=== PATIENT | male | born 1970 | race Caucasian/White ===

== ENCOUNTER → 2017-08-28 | Outpatient (CLI) | payer BC ==
--- NOTE | 2017-08-28 08:46 | US ---
EXAMINATION TYPE: US abdomen complete DATE OF EXAM: 08/28/2017 COMPARISON: NONE CLINICAL HISTORY: 46-year-old male R74.8 abnormal levels of serum enzymes. Elevated liver enzymes TECHNIQUE: Multiple sonographic images of the abdomen are obtained. FINDINGS: EXAM MEASUREMENTS: Liver Length: 18.6 cm Gallbladder Wall: 0.2 cm CBD: 0.5 cm Spleen: 14.1 cm Right Kidney: 9.7 x 5.3 x 4.9 cm Left Kidney: 10.2 x 6.0 x 5.4 cm Clothes Presser notes: Difficult and limited study due to patient body habitus Pancreas: visualized portions wnl, head and tail limited by overlying midline bowel gas Liver: enlarged, attenuating, increased echogenicity. No focal lesion seen. Gallbladder: wnl Evidence for sonographic Yap's sign: no CBD: visualized portions wnl, limited by overlying bowel gas Spleen: Mildly enlarged, limited by overlying bowel gas Right Kidney: No hydronephrosis Left Kidney: No hydronephrosis Upper IVC: Limited visualization due to bowel gas. Abd Aorta: visualized portions wnl, distal portion obscured by overlying midline bowel gas . IMPRESSION: 1. Technically difficult exam due to patient body habitus and bowel gas. 2. Mild hepatomegaly (18.6 cm) with moderate to marked hepatic steatosis. Correlate with LFTs, lipid profile, and patient risk factors. 3. Mild splenomegaly (14.1 cm).
== END | disposition home or self-care (01) ==
LOC: RADUSWWP 07:15
PROVIDERS: ATTEND Family Medicine
DX: K76.0 Fatty (change of) liver, not elsewhere classified (principal); R16.2 Hepatomegaly with splenomegaly, not elsewhere classified
CPT/HCPCS: 76700

== ENCOUNTER → 2018-12-14 | Outpatient (CLI) | payer OTHER ==
--- NOTE | 2018-12-14 22:10 | MR ---
EXAMINATION TYPE: MR knee LT wo con DATE OF EXAM: 12/14/2018 COMPARISON: None HISTORY: Chondral injury left knee TECHNIQUE: Multiplanar, multisequence images of the knee is performed without IV contrast. FINDINGS: MEDIAL MENISCUS: There is increased signal within the substance of the posterior horn medial meniscus compatible with internal derangement or degenerative change. The anterior horn appears intact. Radia l tear is not excluded near the midline. LATERAL MENISCUS: Anterior and posterior horns are intact without tear. CRUCIATE LIGAMENTS: The anterior and posterior cruciate ligaments are intact and unremarkable. COLLATERAL LIGAMENTS: The medial collateral ligament and lateral collateral ligament complex are inta ct and unremarkable. EXTENSOR MECHANISM: Visualized quadriceps and patellar tendons are intact. EFFUSION: Minimal joint effusion is present. POPLITEAL CYST: No popliteal/solorio cyst. TRICOMPARTMENT SPACES: There is some mild narrowing of the medial compartment joint space. Milder mely rowing of the lateral compartment joint space is present. CARTILAGE: There is thinning of the medial and lateral femoral condylar cartilage. Tibial plateau car tilage appears preserved. Patellofemoral joint space is preserved. No suspicious undercutting fractur e through the cartilage is evident. BONE MARROW SIGNAL: No focal abnormal marrow signal is appreciated. OTHER: No additional significant abnormality is appreciated. IMPRESSION: 1. Suspected radial tear mid medial meniscus. 2. Mild internal derangement or degenerative change of the posterior horn medial meniscus. 3. Intimal joint effusion. 4. Mild thinning of the articular cartilage of the medial lateral femoral condyles.
== END | disposition home or self-care (01) ==
LOC: RADMRIMAIN 19:01
PROVIDERS: ATTEND Family Medicine
DX: S83.242A Other tear of medial meniscus, current injury, left knee, initial encounter (principal)

== ENCOUNTER → 2021-03-28 | Outpatient (CLI) | payer BC ==
--- NOTE | 2021-03-28 13:34 | CONS ---
CONSULTATION DATE OF SERVICE: 03/28/2021 This 50-year-old gentleman has been evaluated in Sleep Center for obstructive sleep apnea-hypopnea syndrome. HISTORY OF PRESENT ILLNESS/SLEEP-WAKE EVALUATION: Patient was diagnosed with obstructive sleep apnea in [place] about 10 years ago. Since that time, he has been on treatment with CPAP and is using equipment every night. His sleep schedule is from 11 p.m. until 7 a.m. on weekdays and from midnight until 7 a.m. on weekends. No problems with falling asleep, although he has a TV set in the bedroom. He usually sleeps on the back position. No history of hypnagogic hallucinations, sleep paralysis or cataplexy. Results of his previous sleep study are unavailable. [place] Sleepiness Scale is 2. I checked his CPAP unit. Range of the pressure is 14 to 20, average usage 7.6 hours per night, 22/30 nights for more than 4 hours, which indicates normal compliance. PAST MEDICAL HISTORY: Positive for hypothyroidism, post-traumatic stress disorder. PAST SURGICAL HISTORY: Cholecystectomy, abdominal liposuction. MEDICATIONS: 1. Levothyroxine 25 mcg once a day. 2. Medication for losing weight. SOCIAL HISTORY: Positive for smoking in the past; quit smoking about 5 years ago. Alcohol consumption: None. FAMILY HISTORY: Hypertension, diabetes. REVIEW OF SYSTEMS: Sometimes awakenings from sleep. No fevers. No double vision. No recent chest pain. No shortness of breath. No abdominal pain. No bleeding episodes. No blood in the urine. No seizure episodes. PHYSICAL EXAMINATION: GENERAL: Pleasant patient in no distress. VITAL SIGNS: BP 121/81, HR 79, RR 16, height 5 feet 8 inches, weight 223.4, body mass index 33.9, neck 18-1/2 inches in circumference, temperature 97.8, oxygen saturation at room air 97%. HEENT: PERRLA, EOMI, evaluation of oropharynx showed tongue protrudes midline. Extremely low position of soft palate; Mallampati IV. NECK: Supple, no JVD. Thyroid is not palpable. Neck measures 18-1/2 inches in circumference. LUNGS: Clear to percussion and to auscultation. Good air exchange. No wheezing or rhonchi. HEART: S1, S2 regular. No murmurs, gallops, or rubs. ABDOMEN: Soft and nontender. Bowel sounds are present. No organomegaly appreciated. EXTREMITIES: No clubbing or cyanosis. TUBULAR RIVETER: Awake, alert, and oriented X3. Cranial nerves 2 to 7 intact. There is no fasciculation or atrophy. noted. No focal deficits observed. IMPRESSION: 1. Obstructive sleep apnea-hypopnea syndrome for 10 years. Patient continues to use his CPAP equipment. Results of previous sleep studies are unavailable; done in another state. Extremely low position of soft palate, Mallampati IV, wide neck, 18- 1/2 inches in circumference; obstructive sleep apnea-hypopnea syndrome. 2. Obesity. 3. Hypothyroidism. 4. History of post-traumatic stress disorder. 5. Status post cholecystectomy. 6. Status post abdominal liposuction. PLAN: 1. Home sleep apnea test for evaluation of patient's breathing during sleep to confirm obstructive sleep apnea-hypopnea syndrome. 2. We will get the patient a new CPAP unit and all necessary CPAP supplies. His CPAP unit is old and does not have information about apnea-hypopnea index. 3. Watching and losing weight. 4. Sleep hygiene with regular time in bed for 7-1/2 to 8 hours. 5. No driving if feeling sleepiness. Thank you very much for referring this patient for consultation. Sincerely, Leopoldo Call MD, PhD, FAASM Diplomat of [place] [employer] Sleep Medicine Board of [place] [employer] Game Master of [facility] [place] MMODL / MARCO: [id number] /
== END ==
LOC: SLEEP 10:09
PROVIDERS: ATTEND Internal Medicine
DX: G47.33 Obstructive sleep apnea (adult) (pediatric) (principal); E66.9 Obesity, unspecified; E03.9 Hypothyroidism, unspecified; Z90.49 Acquired absence of other specified parts of digestive tract
CPT/HCPCS: 99211

== ENCOUNTER → 2021-11-14 | Outpatient (CLI) | payer BC ==
--- NOTE | 2021-11-14 11:32 | P.PN ---
Subjective DATE: 11/14/2021 FOLLOW UP VISIT. Patient with obstructive sleep apnea hypopnea syndrome return to sleep center for follow-up visit. Recently patient had sleep study which documented obstructive sleep apnea hypopnea syndrome. Patient was initiated on PAP therapy and today is first visit after treatment was started. Patient was able to use PAP equipment every night for the whole night. The patient does not have significant problems with the mask, PAP pressure and humidification. [place] sleepiness scale is 0. I checked information from PAP unit. PAP unit pressure 5-15, average 12.3 cm H2O. Usage is 90 % for more then 4 hours, average 8 hours per night. Leak is 5.1 l/m, which is in good range. Apnea Hypopnea Index is 0.1, which is perfect. MEDICATIONS:1. Levothyroxine 25 g once a day 2. Medication for losing weight During physical exam: GENERAL: A pleasant patient without any distress. VITAL SIGNS: BP 130/76, HR 65, RR 16, weight 225.2, temperature 97, oxygen saturation at room air 97%. HEENT: PERRLA, EOMI.low position of soft palate, Mallapati 4 . NECK: Supple. No JVD. LUNGS: Clear to percussion and to auscultation. Good air exchange. No wheezing or rhonchi. HEART: S1, S2 regular. ABDOMEN: Soft and nontender.[] EXTREMITIES: No clubbing or cyanosis. KNOCK UP ASSEMBLER: Awake, alert, and oriented x3. No focal deficit. Impressions: 1. Obstructive sleep apnea-hypopnea syndrome. Patient demonstrated great compliance with treatment, benefiting from treatment. 2. Mild obesity. 3. Hypothyroidism. 4. History of post traumatic stress disorder. 5. Status post cholecystectomy. 6. Status post abdominal liposuction. Plan: 1. Continue using PAP equipment every night for the whole night. 2. To change air filter at least 1-2 times per month. 3. PAP unit should stay lower then position of the head. 4. Advised patient to remove all remaining water from humidifier canister daily and make it dry after each usage. Refill canister with fresh distilled water before each usage. 5. Sleep hygiene with regular time in bed for at least 8 hours. 6. Precautions related to driving. No driving if feel any sleepiness. 7. I will maintain prescription for PAP supplies including mask, tube, filters. 8. Follow up visit in 6 months or earlier if patient has any problems. 9. Watching weight. Thank you very much for allowing me to participate in the management of your patient. Leopoldo Call MD, PhD, FAASM. Diplomat of [place] [employer], Sleep Medicine Board by [place] [employer] Waiter/Waitress Counter of [facility] [place]
== END | disposition home or self-care (01) ==
LOC: SLEEP 11:08
PROVIDERS: ATTEND Internal Medicine
DX: Z53.9 Procedure and treatment not carried out, unspecified reason (principal)
CPT/HCPCS: 99212

== ENCOUNTER → 2022-10-03 | Outpatient (CLI) | payer BC ==
--- NOTE | 2022-10-03 17:09 | P.PN ---
Subjective DATE: 10/03/2022 FOLLOW UP VISIT. Patient with obstructive sleep apnea hypopnea syndrome return to sleep center for follow-up visit. Information from previous visit have been reviewed. Patient is using PAP equipment every night for the whole night, getting PAP supplies in time. The patient does not have significant problems with the mask, PAP unit and humidification. [place] sleepiness scale is 0. I checked information from PAP unit. PAP unit pressure 5-15, average 9.0 cm H2O. Usage is 100 % for more then 4 hours, average 7.5 hours per night. Leak is 4.2 l/m, which is in acceptable range. Apnea Hypopnea Index is 0.2, which is normal. MEDICATIONS:1. Synthroid 75 g once a day 2.. Lexapro 20 mg once a day 3. Seroquel 100 mg once a day During physical exam: GENERAL: A pleasant patient without any distress. VITAL SIGNS: BP 126/82, HR 60, RR 16, weight to 240.4, temperature 98.6, oxygen saturation at room air 96 % . HEENT: PERRLA, EOMI.low position of soft palate, Mallapati 4 . NECK: Supple. No JVD. LUNGS: Clear to percussion and to auscultation. Good air exchange. No wheezing or rhonchi. HEART: S1, S2 regular. ABDOMEN: Soft and nontender. Slightly obese EXTREMITIES: No clubbing or cyanosis. MACHINIST BENCH: Awake, alert, and oriented x3. No focal deficit. Impressions: 1. Obstructive sleep apnea-hypopnea syndrome. Patient demonstrated great compliance with treatment, benefiting from treatment. 2. Obesity, patient increased his weight on 15 pounds comparing to the previous visit. 3. Hypothyroidism. 4. History of posttraumatic stress disorder. 5. Status post cholecystectomy. 6. Status post abdominal liposuction. Plan: 1. Continue using PAP equipment every night for the whole night. 2. To change air filter at least 1-2 times per month. 3. PAP unit should stay lower then position of the head. 4. Advised patient to remove all remaining water from humidifier canister daily and make it dry after each usage. Refill canister with fresh distilled water before each usage. 5. Sleep hygiene with regular time in bed for at least 8 hours. 6. Precautions related to driving. No driving if feel any sleepiness. 7. I will maintain prescription for PAP supplies including mask, tube, filters. 8. Watching and losing weight. 9. Follow up visit in 6 months or earlier if patient has any problems. Thank you very much for allowing me to participate in the management of your patient. Leopoldo Call MD, PhD, FAASM. Diplomat of [place] [employer], Sleep Medicine Board by [place] [employer] Retail Coverage Merchandiser of [facility] [place]
== END ==
LOC: 3 N SLEEP 16:27
PROVIDERS: ATTEND Internal Medicine
DX: G47.33 Obstructive sleep apnea (adult) (pediatric) (principal); E03.9 Hypothyroidism, unspecified; E66.9 Obesity, unspecified; F43.10 Post-traumatic stress disorder, unspecified; Z79.890 Hormone replacement therapy; Z99.89 Dependence on other enabling machines and devices; Z98.890 Other specified postprocedural states
CPT/HCPCS: 99212

== ENCOUNTER 2023-04-29 21:29 | Emergency (ER) | payer BC ==
[2023-04-29] MEDS: NITROGLYCERIN SL TABS 0.4 MG TAB SUBLINGUAL STA (21:47)
--- NOTE | 2023-04-29 21:49 | ED ---
General Adult HPI - General Stated complaint: Chest pain Time Seen by Provider: 04/29/23 21:36 Source: RN notes reviewed, old records reviewed - History of Present Illness Initial comments: Patient is a 52-year-old male who presents emergency department complaining of chest pain. Patient also has a bilateral frontal headache that is been present for multiple months. This is unchanged from his baseline. Did have prior workup without any obvious etiology. This seemed evening at approximately 8 PM he developed chest pain suddenly. Was on the right side of his chest. No radiation. Describes it as a discomfort rating it as a 1-2 out of 10. Did feel sweaty when it started but that has since resolved. Denies any nausea or vomiting. Denies any other pain or shortness of breath. No history of recent long distance travel. Does have a history of PTSD but denies any worsening anxiety or panic issues. States he did see PCP last week and his blood pressure was slightly elevated. Pressure currently is within acceptable limits. Did receive nitro on the way to the hospital. States that did not improve his symptoms. Also received aspirin 324 mg from EMS. 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 Presents for further evaluation at this time. - Related Data Allergies Allergy/AdvReac Type Severity Reaction Status Date / Time No Known Allergies Allergy Verified 04/29/23 21:51 Review of Systems ROS Statement: Those systems with pertinent positive or pertinent negative responses have been documented in the HPI. Review of Systems: CONST: Denies fever EYES: Denies blurry vision ENT: Denies nasal congestion C/V: Endorses chest pain RESP: Denies shortness of breath GI: Denies abdominal pain : Denies dysuria SKIN: Denies rash. MSK: Denies joint pain. NEURO: Denies headache ROS Other: All systems not noted in ROS Statement are negative. General Exam - General Exam Comments Initial Comments: General: Appears in no acute distress. HEAD: Normal with no signs of head trauma. EYES: PERRLA, EOMI, conjunctiva normal, no discharge. Pupils are 3 mm and equal bilaterally. ENT: Hearing grossly intact, normal oropharynx. RESPIRATORY: Clear breath sounds bilaterally. No wheezes, rales, or rhonchi. C/V: Regular rate and rhythm. S1 and S2 auscultated, no edema, peripheral pulses 2+ and intact throughout ABD: Abd is soft, nontender, nondistended EXT: Normal range of motion, no obvious deformity. Chest pain is not reprod ucible on palpation. SKIN: No rashes or lesions observed on exposed skin. NEURO: Alert and oriented x 4. GCS of 15. No focal deficits. Course Vital Signs 04/29/23 04/29/23 04/30/23 21:43 21:51 01:22 Temperature 98.0 F Pulse Rate 71 68 56 L Respiratory 18 18 16 Rate Blood Pressure 126/85 107/77 112/74 O2 Sat by Pulse 97 97 Oximetry Medical Decision Making - Medical Decision Making Was pt. sent in by a medical professional or institution (, PA, RV REPAIR TECHNICIAN, urgent care, hospital, or prison...) When possible be specific @ -No Did you speak to anyone other than the patient for history (EMS, parent, family, police, friend...)? What history was obtained from this source @ -No Did you review nursing and triage notes (agree or disagree)? Why? @ -I reviewed and agree with nursing and triage notes Were old charts reviewed (outside hosp., previous admission, EMS record, old EKG, old radiological studies, urgent care reports/EKG's, prison records)? Report findings @ -Old charts reviewed Differential Diagnosis (chest pain, altered mental status, abdominal pain women, abdominal pain men, vaginal bleeding, weakness, fever, dyspnea, syncope, headache, dizziness, GI bleed, back pain, seizure, CVA, palpatations, mental health, musculoskeletal)? @ -Differential Chest Pain: Stable Angina, Unstable Angina, STEMI, NSTEMI Aortic Dissection, Pneumothorax, Musculoskeletal, Esophageal Spasm GERD, Cholecystitis, Pancreatitis, Zoster, this is not meant to be an all-inclusive list. EKG interpreted by me (3pts min.). @ -As above X-rays interpreted by me (1pt min.). @ -X-ray reveals no obvious acute cardiopulmonary process. CT interpreted by me (1pt min.). @ -None done U/S interpreted by me (1pt. min.). @ -None done What testing was considered but not performed or refused? (CT, X-rays, U/S, labs)? Why? @ -None What meds were considered but not given or refused? Why? @ -None Did you discuss the management of the patient with other professionals (professionals i.e. , PA, RV REPAIR TECHNICIAN, lab, RT, psych nurse, social media coordinator, flower grader, teacher, biosecurity officer, caser)? Give summary @ -No Was smoking cessation discussed for >3mins.? @ -No Was critical care preformed (if so, how long)? @ -No Were there social determinants of health that impacted care today? How? (Homelessness, low income, unemployed, alcoholism, drug addiction, transportation, low edu. Level, literacy, decrease access to med. care, long term, rehab)? @ -No Was there de-escalation of care discussed even if they declined (Discuss DNR or withdrawal of care, Hospice)? DNR status @ -No What co-morbidities impacted this encounter? (DM, HTN, Smoking, COPD, CAD, Cancer, CVA, ARF, Chemo, Hep., AIDS, mental health diagnosis, sleep apnea, morbid obesity)? @ -None Was patient admitted / discharged? Hospital course, mention meds given and route, prescriptions, significant lab abnormalities, going to OR and other pertinent info. @ -Patient presents for chest pain. Started approximately an hour and a half prior to arrival. No significant cardiac history in himself or family members. Vital signs are currently within acceptable limits. EMS provided the patient with 324 mg of aspirin as well as oral nitroglycerin. Chest pain still persists and nitro did not help. We will administer 1 additional nitro tablet and he was in agreement this plan. Will obtain cardiopulmonary workup. He was in agreement this plan. EKG shows no signs of acute ischemia.Chest x-ray shows no obvious acute cardiopulmonary process. Patient's laboratory studies remarkable for normal D- dimer, undetectable troponin, undetectable BNP. On reevaluation, patient did receive additional nitro but states that chest pain resolved without this. No obvious effect from the nitro. He will be given the rest of his migraine cocktail. Headache is also improved at this time. I discussed the results with the patient. I did offer admission for further monitoring of his chest pain. He would prefer to go home if possible and I did offer a second 3-hour troponin which she was in agreement with. He is asymptomatic at this time. Second troponin is undetectable as well. Patient remains asymptomatic. I discussed with the patient. Heart score is low. He will be discharged home at this time. I instructed the patient to follow up with their PCP in the next 1-3 days. I explained that the patient should return to the emergency department if they experience any worsening symptoms. Strict return precautions were discussed with the patient. The patient expressed understanding of these instructions. I answered all questions that the patient had. The patient was discharged home in good condition with their prescriptions and follow up information. Undiagnosed new problem with uncertain prognosis? @ -No Drug Therapy requiring intensive monitoring for toxicity (Heparin, Nitro, Insulin, Cardizem)? @ -No Were any procedures done? @ -No Diagnosis/symptom? @ -Headache, atypical chest pain Acute, or Chronic, or Acute on Chronic? @ -Acute Uncomplicated (without systemic symptoms) or Complicated (systemic symptoms)? @ -Uncomplicated Side effects of treatment? @ -None Exacerbation, Progression, or Severe Exacerbation] @ -No Poses a threat to life or bodily function? @ -Unlikely - Lab Data Result diagrams: 04/29/23 21:40 04/29/23 21:40 Lab Results 04/29/23 04/29/23 04/29/23 Range/Units 21:40 21:40 21:40 WBC 7.3 (3.8-10.6) k/uL RBC 4.95 (4.30-5.90) m/uL Hgb 15.7 (13.0-17.5) gm/dL Hct 44.8 (39.0-53.0) % MCV 90.6 (80.0-100.0) fL MCH 31.8 (25.0-35.0) pg MCHC 35.1 (31.0-37.0) g/dL RDW 12.3 (11.5-15.5) % Plt Count 155 (150-450) k/uL MPV 8.4 Neutrophils % 60 % Lymphocytes % 28 % Monocytes % 6 % Eosinophils % 3 % Basophils % 1 % Neutrophils # 4.4 (1.3-7.7) k/uL Lymphocytes # 2.1 (1.0-4.8) k/uL Monocytes # 0.4 (0-1.0) k/uL Eosinophils # 0.2 (0-0.7) k/uL Basophils # 0.1 (0-0.2) k/uL PT 11.1 (10.0-12.5) sec INR 1.0 (<1.2) APTT 23.0 (22.0-30.0) sec D-Dimer 0.26 (<0.60) mg/L FEU Sodium 140 (137-145) mmol/L Potassium 4.4 (3.5-5.1) mmol/L Chloride 114 H (98-107) mmol/L Carbon Dioxide 20 L (22-30) mmol/L Anion Gap 6 mmol/L BUN 27 H (9-20) mg/dL Creatinine 1.06 (0.66-1.25) mg/dL Est GFR (CKD-EPI)AfAm >90 (>60 ml/min/1.73 sqM) Est GFR (CKD-EPI)NonAf 82 (>60 ml/min/1.73 sqM) Glucose 96 (74-99) mg/dL Calcium 8.7 (8.4-10.2) mg/dL Magnesium 2.1 (1.6-2.3) mg/dL Total Bilirubin 0.9 (0.2-1.3) mg/dL AST 50 (17-59) U/L ALT 72 H (4-49) U/L Alkaline Phosphatase 57 (38-126) U/L Troponin I (0.000-0.034) ng/mL NT-Pro-B Natriuret Pep <20 pg/mL Total Protein 6.6 (6.3-8.2) g/dL Albumin 4.1 (3.5-5.0) g/dL Lipase 224 (23-300) U/L 04/29/23 04/30/23 Range/Units 21:40 00:41 WBC (3.8-10.6) k/uL RBC (4.30-5.90) m/uL Hgb (13.0-17.5) gm/dL Hct (39.0-53.0) % MCV (80.0-100.0) fL MCH (25.0-35.0) pg MCHC (31.0-37.0) g/dL RDW (11.5-15.5) % Plt Count (150-450) k/uL MPV Neutrophils % % Lymphocytes % % Monocytes % % Eosinophils % % Basophils % % Neutrophils # (1.3-7.7) k/uL Lymphocytes # (1.0-4.8) k/uL Monocytes # (0-1.0) k/uL Eosinophils # (0-0.7) k/uL Basophils # (0-0.2) k/uL PT (10.0-12.5) sec INR (<1.2) APTT (22.0-30.0) sec D-Dimer (<0.60) mg/L FEU Sodium (137-145) mmol/L Potassium (3.5-5.1) mmol/L Chloride (98-107) mmol/L Carbon Dioxide (22-30) mmol/L Anion Gap mmol/L BUN (9-20) mg/dL Creatinine (0.66-1.25) mg/dL Est GFR (CKD-EPI)AfAm (>60 ml/min/1.73 sqM) Est GFR (CKD-EPI)NonAf (>60 ml/min/1.73 sqM) Glucose (74-99) mg/dL Calcium (8.4-10.2) mg/dL Magnesium (1.6-2.3) mg/dL Total Bilirubin (0.2-1.3) mg/dL AST (17-59) U/L ALT (4-49) U/L Alkaline Phosphatase (38-126) U/L Troponin I <0.012 <0.012 (0.000-0.034) ng/mL NT-Pro-B Natriuret Pep pg/mL Total Protein (6.3-8.2) g/dL Albumin (3.5-5.0) g/dL Lipase (23-300) U/L - EKG Data -: EKG Interpreted by Me EKG Comments: 12-lead Electrocardiogram Interpretation Note EKG was reviewed and interpreted by myself. 12-lead ECG performed at 2136 is interpreted by me as revealing normal sinus rhythm at a rate of 63 beats per minute. [place] is normal. [place] interval is 174 ms, QRS duration is 104 ms, QTc is 381 ms.. There were no ST or T wave abnormalities to suggest myocardial ischemia or injury. R wave progression across the precordium was satisfactory. By my interpretation this EKG is non-diagnostic for acute ischemia. Disposition Clinical Impression: Atypical chest pain, Headache Disposition: HOME SELF-CARE Condition: Good Instructions (If sedation given, give patient instructions): Chest Pain (ED) Is patient prescribed a controlled substance at d/c from ED?: No Referrals: Silver Domingo MD [Primary Care Provider] - 1-2 days Time of Disposition: 01:16
[2023-04-29] MEDS: SODIUM CHLORIDE 0.9% 1,000 ML IV STA (21:53)
[2023-04-29 21:58] LABS: Basophils # (A) 0.1 k/uL (0-0.2); Basophils % (A) 1 %; Eosinophils # (A) 0.2 k/uL (0-0.7); Eosinophils % (A) 3 %; HCT 44.8 % (39.0-53.0); HGB 15.7 gm/dL (13.0-17.5); Lymphocytes # (A) 2.1 k/uL (1.0-4.8); Lymphocytes % (A) 28 %; MCH 31.8 pg (25.0-35.0); MCHC 35.1 g/dL (31.0-37.0); MCV 90.6 fL (80.0-100.0); Mean Platelet Volume 8.4; Monocytes # (A) 0.4 k/uL (0-1.0); Monocytes % (A) 6 %; Neutrophils # (A) 4.4 k/uL (1.3-7.7); Neutrophils % (A) 60 %; Platelet Count 155 k/uL (150-450); RBC 4.95 m/uL (4.30-5.90); RDW 12.3 % (11.5-15.5); WBC 7.3 k/uL (3.8-10.6)
[2023-04-29 22:07] VITALS: TEMP 98
[2023-04-29 22:09] LABS: ALT 72 U/L (4-49); AST 50 U/L (17-59); African American GFR (CKD) >90 (>60 ml/min/1.73 sqM); Albumin 4.1 g/dL (3.5-5.0); Alkaline Phosphatase 57 U/L (38-126); Anion Gap 6 mmol/L; Blood Urea Nitrogen 27 mg/dL (9-20); Calcium 8.7 mg/dL (8.4-10.2); Carbon Dioxide 20 mmol/L (22-30); Chloride 114 mmol/L (98-107); Glucose 96 mg/dL (74-99); Lipase 224 U/L (23-300); Magnesium 2.1 mg/dL (1.6-2.3); Non-African American GFR(CKD) 82 (>60 ml/min/1.73 sqM); Potassium 4.4 mmol/L (3.5-5.1); Sodium 140 mmol/L (137-145); Total Bilirubin 0.9 mg/dL (0.2-1.3); Total Protein 6.6 g/dL (6.3-8.2)
[2023-04-29 22:17] LABS: NT-Pro-B-Type Natriuretic Pept <20 pg/mL
--- NOTE | 2023-04-29 22:21 | XR ---
EXAM: XR Chest, 2 Views CLINICAL HISTORY: XR Reason: Chest Pain TECHNIQUE: Frontal and lateral views of the chest. COMPARISON: No relevant prior studies available. FINDINGS: Lungs: Unremarkable. No consolidation. Pleural space: Unremarkable. No pneumothorax. Heart: Unremarkable. No cardiomegaly. Mediastinum: Unremarkable. Normal mediastinal contour. Bones/joints: Mild to moderate osteophytosis throughout the mid to lower thoracic spine. No acute fracture. Upper abdomen: There is no pneumoperitoneum under the diaphragm. IMPRESSION: No acute findings in the chest.
[2023-04-29 22:30] LABS: Prothrombin Time 11.1 sec (10.0-12.5)
[2023-04-30] MEDS: METOCLOPRAMIDE 5 MG/ML 2 ML VIAL IVP STA (00:03)
[2023-04-30] MEDS: KETOROLAC 15 MG/ML 1 ML VIAL IVP STA (00:04)
[2023-04-30] MEDS: diphenhydrAMINE 50 MG/ML 1 ML VIAL IVP STA (00:06)
[2023-04-30] MEDS: LORazepam 0.5 MG TAB PO STA (00:08)
[2023-04-30 01:40] VITALS: BP 112/74; PULSE 56; RESP 16
[2023-04-30] MEDS ORDERED: NITROGLYCERIN OINT 1 INCH/GM PACKET TOPICAL SCH (22:30)
== END 2023-04-30 01:40 | disposition home or self-care (01) ==
LOC: EC 21:29
DX: R07.89 Other chest pain (principal); R51.9 Headache, unspecified
CPT/HCPCS: 99285 ×2; 96374 ×2; 96375 ×3; 96361 ×2; 36415 ×2; 93005; 85379; 83880; 80053; 83690; 83735; 84484 ×2; 85025; 85610; 85730; 71046; J1200; J2765; J1885

== ENCOUNTER → 2024-02-20 | Day surgery (SDC) | payer BC ==
[~2024-02-20] MED LIST: LIDOCAINE 1% INJ 10MG/ML (20 ML MDV) ONE; PROPOFOL 10 MG/ML 20 ML VIAL IV ONE
[2024-02-20] MEDS: LACTATED RINGERS 1,000 ML IV SCH (12:42)
[2024-02-20 12:48] VITALS: TEMP 98
[2024-02-20] MEDS: IV FLUID CONTINUATION 1,000 ML IV ONE ×2 (12:48→13:25)
--- NOTE | 2024-02-20 13:44 | P.PCN ---
Date of Procedure: 02/20/24 Procedure(s) Performed: BRIEF HISTORY: Patient is a 53-year-old pleasant white male scheduled for an elective colonoscopy as a part of screening for colon cancer. PROCEDURE PERFORMED: Colonoscopy with snare polypectomy PREOPERATIVE DIAGNOSIS: Screening for colon cancer. IV sedation per Anesthesia. PROCEDURE: After informed consent was obtained, the patient, was brought into the endoscopy unit. IV sedation was administered by Anesthesia under continuous monitoring. Digital rectal examination was normal. Initially the Olympus CF-160 flexible video colonoscope was then inserted in the rectum, gradually advanced into the cecum without any difficulty. Careful examination was performed as the scope was gradually being withdrawn. Ileocecal valve and the appendiceal orifice were visualized and appeared normal. Prep was excellent. Mucosa of the cecum, ascending colon, transverse colon, descending colon, sigmoid colon, and rectum appeared normal. In the rectosigmoid colon at 20 cm from the anal verge there was a 5 mm sessile polyp removed by cold snare polypectomy. Scattered sigmoid diverticulosis seen. Retroflexion was performed in the rectum and no lesions were seen. The patient tolerated the procedure well. IMPRESSION: 5 mm rectosigmoid polyp status post cold snare polypectomy Scattered sigmoid diverticulosis RECOMMENDATIONS: Findings of this examination were discussed with the patient as well as his family. He was advised to follow-up with the biopsy results. If the biopsy reveals adenoma he can have repeat colonoscopy in 5 years..
[2024-02-20 14:23] VITALS: BP 139/90; PULSE 77; RESP 16
== END ==
LOC: ORWHC2ENDO 11:05
PROVIDERS: ATTEND Internal Medicine Gastroenterology
DX: Z12.11 Encounter for screening for malignant neoplasm of colon (principal); D12.5 Benign neoplasm of sigmoid colon; K57.30 Diverticulosis of large intestine without perforation or abscess without bleeding; K76.0 Fatty (change of) liver, not elsewhere classified; I10 Essential (primary) hypertension; E78.5 Hyperlipidemia, unspecified; G47.33 Obstructive sleep apnea (adult) (pediatric); E07.9 Disorder of thyroid, unspecified; Z90.89 Acquired absence of other organs; Z79.890 Hormone replacement therapy; Z79.899 Other long term (current) drug therapy
CPT/HCPCS: 88305; 45385; J2003; J2704